=== PATIENT | male | born 1945 | race Hispanic/Latino ===

== ENCOUNTER 2020-10-09 07:20 | Observation (INO) | payer MEDICARE ==
[2020-10-09 08:36] LABS: Basophils # (Auto) 0.1 K/mm3 (0.0-0.1); Basophils % (Auto) 0.8 % (0.0-1.8); Eosinophils # (Auto) 0.2 K/mm3 (0.0-0.4); Eosinophils % (Auto) 2.9 % (0.0-4.3); Hematocrit 39.7 % (35.5-45.6); Hemoglobin 13.7 gm/dl (11.8-15.2); Lymphocytes # (Auto) 2.2 K/mm3 (1.2-5.4); Lymphocytes % (Auto) 28.7 % (13.4-35.0); Mean Corpuscular HGB Conc 35 % (32-34); Mean Corpuscular Volume 86 fl (84-94); Monocytes # (Auto) 0.5 K/mm3 (0.0-0.8); Monocytes % (Auto) 6.5 % (0.0-7.3); Platelet Count 160 K/mm3 (140-440); Red Blood Count 4.62 M/mm3 (3.65-5.03); Red Cell Distribution Width 13.9 % (13.2-15.2)
[2020-10-09 08:46] LABS: BUN/Creatinine Ratio 19; Blood Urea Nitrogen 15 mg/dL (9-20); Calcium 9.5 mg/dL (8.4-10.2); Hemolysis Index 0
[2020-10-09 08:47] LABS: INR 1.13 (0.87-1.13)
[2020-10-09] MEDS ORDERED: HEPARIN/NS 5000 UNIT/500ML 1,000 ML IR ONE (09:10)
[2020-10-09] MEDS ORDERED: NITROGLYCERIN SYRINGE 3 ML ONE (09:11)
[2020-10-09] MEDS: SODIUM CHLORIDE 0.9% 500 ML 500 ML IV SCH ×2 (09:22→09:51)
[2020-10-09] MEDS: MIDAZOLAM 2 MG/2 ML INJ ONE ×3 (09:47→10:12)
[2020-10-09] MEDS: fentaNYL 100 MCG/2 ML INJ ONE ×5 (09:47→10:47)
[2020-10-09] MEDS: LIDOCAINE (2%) 20 MG/1 ML VIAL 20 ML MDV INFILTRATI ONE ×2 (09:48→10:07)
[2020-10-09] MEDS: HEPARIN 10,000 UNITS/10 ML VIAL ONE ×5 (09:49→13:21)
[2020-10-09] MEDS: VERAPAMIL 5 MG/2 ML INJ ONE ×3 (09:49→13:21)
[2020-10-09] MEDS ORDERED: TICAGRELOR 90 MG TAB ONE (11:11)
[2020-10-09] MEDS ORDERED: ALUM-MAG HYDROXIDE-SIMETHICONE 200-200-20MG/5ML ORAL LIQD 30 ML ONE (11:11)
[2020-10-09] MEDS ORDERED: traMADol 50 MG TAB PO PRN (11:27)
[2020-10-09] MEDS ORDERED: ZOLPIDEM 5 MG TAB PO PRN (11:27)
[2020-10-09] MEDS ORDERED: HYDROcodone/ACETAMINOPHEN 5-325 MG TAB PO PRN (11:27)
[2020-10-09] MEDS ORDERED: ONDANSETRON 4 MG/2 ML INJ IV PRN (11:27)
[2020-10-09] MEDS ORDERED: SODIUM CHLORIDE 0.9% 1000 ML 1,000 ML IV SCH (11:30)
--- NOTE | 2020-10-09 11:32 | Event Note ---
Date: 10/09/20 Patient presented for outpatient cardiac catheterization, which revealed an 80% ostial stenosis of the right coronary artery. He underwent successful angioplasty and stenting with deployment of three 3.5 x 12 mm drug-eluting stent. Excellent angiographic result at the treated site. No complications. He will be observed overnight post intervention, anticipated discharge tomorrow on guideline directed medical therapy including dual oral antiplatelet therapy with Brilinta 90 mg twice daily.
--- NOTE | 2020-10-09 11:37 | Cardiac Catherization Report ---
CARDIAC CATHETERIZATION AND CORONARY ANGIOPLASTY REPORT REASON FOR PROCEDURE: The patient is preoperative elective hip surgery, underwent a cardiac preoperative assessment for chest pain, which demonstrated an abnormal thallium stress test, he was referred for cardiac catheterization. PROCEDURES: 1. Left heart catheterization. 2. Selective left and right coronary angiography. 3. Left ventricular angiography. 4. Coronary angioplasty and stenting of the right coronary artery. 5. Sedation time, start 10:06, end 11:05. The patient was prepped and draped in a sterile fashion after informed consent. The right radial cath site was prepped and draped after a negative Sadi's test. The right radial artery was entered using Seldinger technique followed by placement of a 6-Cuban hydrophilic sheath. Routine radial cocktail was administered via the sheath. Selective left and right coronary angiography was performed using a #3.5 left Ale and #4 right Ale. Additional angiograms of the right coronary artery was performed using a 5-Cub[place] Daniel catheter. The Daniel catheter was also used for left ventricular angiography. The angiograms were reviewed. HEMODYNAMICS: Left ventricular end-diastolic pressure was 19, following coronary angiography. Ascending aortic pressure was 147/70. There was no significant pressure gradient on pullback across the aortic valve. CORONARY ANGIOGRAPHY: The left main coronary artery was angiographically normal. The left anterior descending artery and its diagonal branches were free of significant disease. A medium to large ramus intermedius artery was free of significant disease. The circumflex artery and its obtuse marginal branches contained mild irregularities. The right coronary artery was dominant. This vessel contained an 80% stenosis at its ostium, associated with moderate calcification. There were mild irregularities of the proximal segment, followed by mild diffuse atherosclerosis of the distal branches. Left ventricular systolic function was well preserved with ejection fraction 55%. CORONARY ANGIOPLASTY: We proceeded with ad hoc coronary intervention to the ostial lesion of the right coronary artery. We selected a #4 right Ale guiding catheter and advanced to the right coronary ostium. A 0.014 inch Platform Supervisor 50 guidewire was then introduced into the vessel, following wire placement, the ostium was predilated using a 3.0 mm balloon catheter. We then deployed a 3.5 x 12 mm drug-eluting stent to the ostial lesion, inflating to optimal pressures. Following stenting, there was an excellent angiographic result at the treated site, 0 residual stenosis. The mild atherosclerosis of the proximal segment beyond the ostial lesion is recommended for medical therapy. Procedure was well tolerated by the patient and there were no complications. The catheters and the wires were removed, sheath removed, and hemostasis achieved using a TR band. CONCLUSION: 1. Cardiac catheterization revealed severe ostial disease of the right coronary artery. 2. Successful angioplasty and stenting with deployment of a 3.5 mm Resolute Adama drug-eluting stent. 3. Well preserved left ventricular systolic function, ejection fraction 55%. RECOMMENDATION: 1. Guideline directed medical therapy including dual oral antiplatelet therapy. 2. The patient's elective hip surgery should be postponed for at least 3 months post-intervention. JOB# [id number] NIDA/CELESTE
[2020-10-09] MEDS ORDERED: ACETAMINOPHEN 325 MG TAB PO ONE (11:44)
[2020-10-09] MEDS ORDERED: ACETAMINOPHEN 325 MG TAB PO PRN (11:50)
[2020-10-09] MEDS: METOPROLOL TARTRATE 25 MG TAB PO SCH ×2 (13:39→22:00)
[2020-10-09] MEDS: LISINOPRIL 10 MG TAB PO SCH (13:40)
[2020-10-09] MEDS ORDERED: PRAVASTATIN 20 MG TAB PO SCH (22:00)
[2020-10-09] MEDS: TICAGRELOR 90 MG TAB PO SCH (22:00)
[2020-10-10 06:10] LABS: Basophils % (Auto) 0.4 % (0.0-1.8); Eosinophils # (Auto) 0.2 K/mm3 (0.0-0.4); Eosinophils % (Auto) 2.5 % (0.0-4.3); Hematocrit 35.5 % (35.5-45.6); Hemoglobin 12.3 gm/dl (11.8-15.2); Lymphocytes # (Auto) 2.3 K/mm3 (1.2-5.4); Lymphocytes % (Auto) 26.4 % (13.4-35.0); Mean Corpuscular HGB Conc 35 % (32-34); Mean Corpuscular Volume 86 fl (84-94); Monocytes # (Auto) 0.6 K/mm3 (0.0-0.8); Monocytes % (Auto) 7.5 % (0.0-7.3); Platelet Count 135 K/mm3 (140-440); Red Blood Count 4.13 M/mm3 (3.65-5.03)
[2020-10-10 06:23] LABS: Creatine Kinase MB 3.2 ng/mL (0.0-4.0)
[2020-10-10 06:27] LABS: BUN/Creatinine Ratio 14; Blood Urea Nitrogen 14 mg/dL (9-20); Calcium 8.9 mg/dL (8.4-10.2); Hemolysis Index 10
--- NOTE | 2020-10-10 09:40 | XRay Report ---
CHEST 1 VIEW INDICATION: post pci. COMPARISON: None FINDINGS: Support devices: Stimulator device overlies the right axillary soft tissues. A lead tracks superiorly to the right side of the neck but the distal tip is cut off the [id number]. Heart: Within normal limits. Lungs/Pleura: No acute air space or interstitial disease. Additional findings: None. IMPRESSION: No acute findings. Signer Name: Dwight Flores Jr, MD Signed: 10/10/2020 9:35 AM Workstation Name: [id number]
[2020-10-10] MEDS: LISINOPRIL 10 MG TAB PO SCH (09:46)
[2020-10-10] MEDS: METOPROLOL TARTRATE 25 MG TAB PO SCH ×2 (09:46→09:50)
[2020-10-10] MEDS: TICAGRELOR 90 MG TAB PO SCH (09:46)
[2020-10-10 09:47] VITALS: BP 139/69
--- NOTE | 2020-10-10 09:59 | Discharge Summary ---
Short Stay Discharge Plan Activity: advance as tolerated Weight Bearing Status: Full Weight Bearing Diet: low fat, low cholesterol, low salt Wound: keep clean and dry Special Instructions: smoking cessation, no heavy lifting (3 days) Follow up with: BHAVNA AVALOS [Other] - 7 Days WESTLEY BATISTA MD [Staff Physician] - 7 Days Prescriptions: Ticagrelor [Brilinta] 90 mg PO BID #60 tablet
[2020-10-10] MEDS ORDERED: ASPIRIN 81 MG TAB CHEW PO SCH (10:00)
== END 2020-10-10 12:05 | disposition home or self-care (01) ==
LOC: CATHLABREC 07:20 → 4A 11:27
PROVIDERS: ADMIT Internal Medicine Cardiovascular Disease; ATTEND Internal Medicine Cardiovascular Disease
DX: I25.10 Atherosclerotic heart disease of native coronary artery without angina pectoris (principal); Z98.61 Coronary angioplasty status; Z98.890 Other specified postprocedural states
CPT/HCPCS: 36415; 71045; 80048; 82550; 82553; 84484; 85025; 85610; 93005; 93458; A9270; C1725; C1769; C1874; C1887; C1894; C9600; G0378; J1644; J2250; J3010; J7040; 92928; Q9967